=== PATIENT | male | born 1960 | race Caucasian/White ===

== ENCOUNTER → 2017-03-21 | Outpatient (CLI) | payer BC, OTHER ==
[~2017-03-21] VITALS: Ht 182.9 cm; Wt 113.6 kg
[~2017-03-21] MED LIST: ALBUTEROL INHAL17 GM IH; ALPRAZOLAM 0.50.5 M1 PO; ALPRAZOLAM 0.50.5 MG PO; COUGH SYRUP118 ML; HYDROCODON-ACE1 EAC5 PO; HYDROCODON-ACE1 EAC7 PO; HYDROCODONE-APA1 TA1 PO; MS CONTIN15 MG PO; NEXIUM PO; NICOTINE TRANSD21 M1; NORCO 5-325 TA1 EACH PO; PREDNISONE 5 MG5 MG PO; PROMETHAZINE/C118 ML PO; SINGULAIR 10 MG10 M1 PO; VOLTAREN GEL 1100 G1 TOP; VOLTAREN GEL 1100 GM TOP; XANAX 0.5 MG0.5 M1 PO
--- NOTE | ~2017-03-21 | HPC ---
[facility] [place] [address] PAIN MANAGEMENT CONSULTATION Name: CHRISTIANOKIRSTIN LEE Room #: REG [facility] Arianne#: [id number] Admission: 03/21/17 Attend Phys: Nawaf Hall DO Discharge: Date of : 64 Report #: [id number] THIS REPORT FOR: //name// CC: Som Hall The patient is a very pleasant 56-year-old gentleman, being treated for bilateral hip DJD, right greater than left pain, chronic pain syndrome requiring complex medication management, history of gastroesophageal reflux, all requiring complex medication management. Last seen in the pain clinic 12/13/2016. Continued the patient on his baseline medication including MS Contin 15 mg b.i.d., hydrocodone 7.5/325 up to 4 a day. The patient has significant nicotine habituation, he had weaned down from 2-3 packs a day down to 1 pack a day. We had congratulated him on his effort and he had planned on stopping smoking before a scheduled [place] vacation with his family. Continued Singulair 10 mg at bedtime to help with nocturnal pertussis and this was helpful. He had prior been using codeine episodically for this. He returns to pain clinic today, he had managed to nearly quit smoking, unfortunately developed a migraine headache on his cruise and did start smoking and he is back to about a pack a day. He states chronic pain in the right hip (status post total hip arthroplasty) remains problematic, little pain in the left hip as well, gait is moderately antalgic. He notes pain is 5 on a 0-10 visual analog scale with the current medication, exacerbated with standing and walking. PHYSICAL EXAMINATION: Shows 56-year-old gentleman, BMI is 34 kg/m2, again back to smoking about 1 pack a day. Vital signs are generally stable, blood pressure 140/77, pulse 68, and respirations 16. Rises from chair using armrest, nominally antalgic gait, again favoring that right hip. He has seen multiple orthopedic surgeons and no one wants to revise his hip. Generally, he is doing adequately with current medications. Last urine drug screen on 07/26/2016, was positive for prescribed medication, morphine and hydrocodone as well as codeine. He has stopped using the codeine product. We reviewed the fact that opiate medications are being used to provide analgesia adequate to support activities of daily living, not attempting to achieve a specific pain score on the 0-10 Visual Analog Scale. The current opiate medications are providing sufficient analgesia to allow the patient to participate in activities of daily living. The patient is not exhibiting any aberrant behavior suggestive of drug diversion. The patient is not having any adverse reactions to medications. The patient is not suffering from daytime somnolence or mental acuity changes. The patient is managing opiate-induced constipation with appropriate uldr-cpr-sktiant agents and dietary considerations. The patient was counseled on concern for caution with operating a motor vehicle while using opiate medications. [address] [address] PAIN MANAGEMENT CONSULTATION Name: KIRSTIN ALVARADO Room #: REG Shana Acuña#: [id number] Admission: 03/21/17 Attend Phys: Nawaf Hall DO Discharge: Date of : 64 Report #: [id number] A physical exam was performed and the patient's functional status was evaluated. All patients with back pain were advised against the bed rest greater than 4 days and were advised to return to normal activities. Pain score assessment was noted and the treatment plan was reviewed with the patient. All current medications, both prescribed and OTC were reviewed and reconciled on the electronic medical record. Tobacco screening was accomplished and smoking cessation was advised when indicated. BMI was noted and diet/exercise modification was recommended for all patients following outside normal parameters. I reviewed with the patient today their responsibilities to safeguard prescription medications, reviewed their responsibility to utilize medications only as prescribed by the physician. They are to seek and receive pain medications only from 1 physician group ( [facility]). They are to use 1 pharmacy and keep the clinic informed if they change pharmacies. Their responsibilities include making followup visits in a timely fashion and to avoid abrupt discontinuation of medication usage. Their responsibilities further include bringing their medications (bottles from the pharmacy with residual pills) to the visit for possible confirmation of pill counts and the patient understands it is their responsibility to submit to random drug screens to ensure both that the medications prescribed are present, and that no other controlled substances are present. All prescriptions provided today were generated electronically. 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 RECOMMENDATION: Continue baseline narcotics unchanged, MS Contin 15 mg b.i.d., hydrocodone 7.5/325 up to 4 a day. I did mandate the patient quit smoking altogether when I see him back in 3 months. I talked about simply trying to quit smoking for 24-hour periods, i.e., no smoking, Saturday, enable smoking Saturday, no smoking Saturday, enable smoking Saturday, etc. Once he is mastered this for 1 month, I will have him go to 2 days at a time. The patient was discharged in good and stable condition, current medications unchanged, strong consideration and encouragement regarding the smoking cessation. <ELECTRONICALLY SIGNED> By: Nawaf Hall DO 03/25/17 0856 [id number] Nawaf Hall DO /nt
[2017-03-21 13:53] VITALS: BP 140/77
== END | disposition home or self-care (01) ==
LOC: PAIN 06:46
DX: M16.0 Bilateral primary osteoarthritis of hip (principal); G89.4 Chronic pain syndrome; K21.9 Gastro-esophageal reflux disease without esophagitis; G43.909 Migraine, unspecified, not intractable, without status migrainosus; Z98.890 Other specified postprocedural states; F17.200 Nicotine dependence, unspecified, uncomplicated

== ENCOUNTER → 2017-07-05 | Outpatient (CLI) | payer BC, OTHER ==
[~2017-07-05] VITALS: Ht 182.9 cm; Wt 113.6 kg
[~2017-07-05] MED LIST changes: +NORCO 7.5-3251 EACH PO
--- NOTE | ~2017-07-05 | HPC ---
[facility] [place] [address] [place] [address] PAIN MANAGEMENT CONSULTATION Name: KIRSTIN ALVARADO Room #: REG [facility] Blanquita.#: [id number] Admission: 07/05/17 Attend Phys: Nawaf Hall DO Discharge: Date of : 64 Report #: [id number] THIS REPORT FOR: //name// CC: Som Hall HISTORY OF PRESENT ILLNESS: The patient is a very pleasant 56-year-old gentleman long treated for DJD bilateral hips right greater than left, chronic pain syndrome requiring high risk complex medication management. Last seen in the pain clinic on 03/21/2017; continued on MS Contin 15 mg b.i.d., hydrocodone 7.5/325 four a day. The patient was counseled regarding smoking cessation. He had been up to 2-3 packs of cigarettes a day for years, down to 1 pack a day. Returns to pain clinic today, I am pleased to note that he has been a nonsmoker now for 2 weeks! I congratulated the patient on his smoking cessation. Last urine drug screen was on 07/27/2016, postive for appropriate meds. The patient notes medications generally provide sufficient analgesia to participate in activities of daily living. Rates his subjective pain score 6 on a VAS. Again, pain is primarily right hip and thigh with some left hip pain; chronic, sharp, aching; rates it as 6 on a VAS; exacerbated with standing and walking. PHYSICAL EXAMINATION: Relatively unchanged. Otherwise a 56-year-old gentleman, BMI is 34 kilograms per meter squared. Vital signs stable as noted in the EMR. Rises from chair using armrest. Modestly antalgic gait, diffuse low back tenderness, tenderness over the right hip. Gait is tandem. Lower extremity strength is preserved. We reviewed the fact that opiate medications are being used to provide analgesia adequate to support activities of daily living, not attempting to achieve a specific pain score on the 0-10 Visual Analog Scale. The current opiate medications are providing sufficient analgesia to allow the patient to participate in activities of daily living. The patient is not exhibiting any aberrant behavior suggestive of drug diversion. The patient is not having any adverse reactions to medications. The patient is not suffering from daytime somnolence or mental acuity changes. The patient is managing opiate-induced constipation with appropriate yasg-oht-qezkihl agents and dietary considerations. The patient was counseled on concern for caution with operating a motor vehicle while using opiate medications. A physical exam was performed and the patient's functional status was evaluated. All patients with back pain were advised against the bed rest greater than 4 days and were advised to return to normal activities. Pain score assessment was noted and the treatment plan was reviewed with the patient. All current medications, both prescribed and OTC were reviewed and reconciled on the electronic medical record. Tobacco screening was accomplished and smoking cessation was advised when indicated. BMI was noted and diet/[place] [address] PAIN MANAGEMENT CONSULTATION Name: CHRISTIANOKIRSTIN NIKIA Room #: REG [facility] Arianne#: [id number] Admission: 07/05/17 Attend Phys: Nawaf Hall DO Discharge: Date of : 64 Report #: [id number] modification was recommended for all patients following outside normal parameters. I reviewed with the patient today their responsibilities to safeguard prescription medications, reviewed their responsibility to utilize medications only as prescribed by the physician. They are to seek and receive pain medications only from 1 physician group ( [facility]). They are to use 1 pharmacy and keep the clinic informed if they change pharmacies. Their responsibilities include making followup visits in a timely fashion and to avoid abrupt discontinuation of medication usage. Their responsibilities further include bringing their medications (bottles from the pharmacy with residual pills) to the visit for possible confirmation of pill counts and the patient understands it is their responsibility to submit to random drug screens to ensure both that the medications prescribed are present, and that no other controlled substances are present. All prescriptions provided today were generated electronically. ASSESSMENT: Symptomatic degenerative joint disease affecting bilateral hips, right greater than left, chronic pain syndrome requiring high risk complex medication management, stable on baseline medication. Last urine drug screen on 07/27/2016, positive for prescribed medications. RECOMMENDATION: Continue MS Contin 15 mg b.i.d., hydrocodone 7.5/325 up to 4 a day. The patient was congratulated on smoking cessation and encouraged regarding continuing this. <ELECTRONICALLY SIGNED> By: Nawaf Hall DO 07/08/17 1014 [id number] Nawaf Hall DO /nt
[2017-07-05 13:35] VITALS: BP 146/77
== END | disposition home or self-care (01) ==
LOC: PAIN 07:21
DX: M16.0 Bilateral primary osteoarthritis of hip (principal); G89.4 Chronic pain syndrome; Z79.899 Other long term (current) drug therapy; Z87.891 Personal history of nicotine dependence

== ENCOUNTER → 2017-11-21 | Outpatient (CLI) | payer BC, OTHER ==
[~2017-11-21] VITALS: Ht 182.9 cm; Wt 116.1 kg
[~2017-11-21] MED LIST changes: +HYDROCODONE-AP1 EA11 PO; +PROMETHAZI6.25 MG/5 PO
--- NOTE | ~2017-11-21 | HPC ---
[facility] [place] [address] [place] [address] PAIN MANAGEMENT CONSULTATION Name: KIRSTIN ALVARADO Room #: REG [facility] Arianne#: [id number] Admission: 11/21/17 Attend Phys: Nawaf Hall DO Discharge: Date of : 64 Report #: [id number] THIS REPORT FOR: //name// CC: Som Hall The patient is a pleasant 57-year-old gentleman, typically treated for DJD affecting bilateral hips, osteoarthritis, chronic pain syndrome, requiring high risk complex medication management. Last seen in the pain clinic 07/05/2017. The patient was continued on baseline medication including MS Contin 15 mg b.i.d., hydrocodone 7.5/325 four a day. To the patient's credit, at last visit he had quit smoking. He tells me today that he has continued to be a nonsmoker. He does use occasional nicotine gum. Nonetheless, cutting down from 2 packs a day for greater than 25 years is a substantial step forward in his general health. He notes current pain is a 6 on a VAS, primarily right hip and thigh, status post right total hip replacement. He has actually had multiple orthopedic surgeons opine about need for surgical revision versus a simple watchful waiting. Ultimately, he has chosen the latter. 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 He traded his boat in for a large boat, he tells me he has about 17 rods and rales. He states he is "not a very good fisherman," but gets great vivi out of spending time on the water. He is obviously participating in activities of daily living including a realtime reporter work and recreational activity. PHYSICAL EXAMINATION: Shows a 57-year-old gentleman, BMI is 34.7 kg/m2. Vital signs are stable as noted on the EMR. Subjective pain score is 6 on a VAS. He has not fallen in the last 3 months, os he does use a cane occasionally when hip is a little more painful. Medicine list was reconciled. We reviewed his opiate consent to treat contract, last signed on 04/23/2016. Risk assessment tool scores the patient low risk. His pain impact score is 39/70. He does have a moderately antalgic gait, though gait is tandem. He does not appear to have any balance issues. We reviewed the fact that opiate medications are being used to provide analgesia adequate to support activities of daily living, not attempting to achieve a specific pain score on the 0-10 Visual Analog Scale. The current opiate medications are providing sufficient analgesia to allow the patient to participate in activities of daily living. The patient is not exhibiting any [address] [address] PAIN MANAGEMENT CONSULTATION Name: CHRISTIANOKIRSTIN NIKIA Room #: REG [facility] Acuña#: [id number] Admission: 11/21/17 Attend Phys: Nawaf Hall DO Discharge: Date of : 64 Report #: [id number] aberrant behavior suggestive of drug diversion. The patient is not having any adverse reactions to medications. The patient is not suffering from daytime somnolence or mental acuity changes. The patient is managing opiate-induced constipation with appropriate scag-saf-ylalanf agents and dietary considerations. The patient was counseled on concern for caution with operating a motor vehicle while using opiate medications. A physical exam was performed and the patient's functional status was evaluated. All patients with back pain were advised against the bed rest greater than 4 days and were advised to return to normal activities. Pain score assessment was noted and the treatment plan was reviewed with the patient. All current medications, both prescribed and OTC were reviewed and reconciled on the electronic medical record. Tobacco screening was accomplished and smoking cessation was advised when indicated. BMI was noted and diet/exercise modification was recommended for all patients following outside normal parameters. I reviewed with the patient today their responsibilities to safeguard prescription medications, reviewed their responsibility to utilize medications only as prescribed by the physician. They are to seek and receive pain medications only from 1 physician group ( [facility]). They are to use 1 pharmacy and keep the clinic informed if they change pharmacies. Their responsibilities include making followup visits in a timely fashion and to avoid abrupt discontinuation of medication usage. Their responsibilities further include bringing their medications (bottles from the pharmacy with residual pills) to the visit for possible confirmation of pill counts and the patient understands it is their responsibility to submit to random drug screens to ensure both that the medications prescribed are present, and that no other controlled substances are present. All prescriptions provided today were generated electronically. ASSESSMENT: Osteoarthritis, degenerative joint disease affecting bilateral knees, right greater than left. Stable on baseline medication including MS Contin 15 mg b.i.d., hydrocodone 7.5/325 one tablet up to 4 times a day. I have taken the liberty of writing for 2 months of current medication, follow up at that time, earlier if needed. We elected to get a buccal swab today. No aberrant behavior suggestive for drug diversion, simply complying with our opiate consent to treat contract. Discharged in good and stable condition, follow up in 2 months for reevaluation. <ELECTRONICALLY SIGNED> By: Nawaf Hall DO 11/22/17 0845 [id number] Nawaf Hall DO /nt
[2017-11-21 13:47] VITALS: BP 131/72
== END ==
LOC: PAIN 07:16
DX: M16.0 Bilateral primary osteoarthritis of hip (principal); G89.29 Other chronic pain; Z79.899 Other long term (current) drug therapy

== ENCOUNTER → 2018-03-07 | Outpatient (CLI) | payer BC, OTHER ==
[~2018-03-07] VITALS: Ht 182.9 cm; Wt 116.3 kg
[~2018-03-07] MED LIST changes: -HYDROCODONE-AP1 EA11 PO; -PROMETHAZI6.25 MG/5 PO
--- NOTE | ~2018-03-07 | HPC ---
[facility] [place] [address] PAIN MANAGEMENT CONSULTATION Name: CHRISTIANOKIRSTIN NIKIA Room #: REG [facility] Arianne#: [id number] Admission: 03/07/18 Attend Phys: Nawaf Hall DO Discharge: Date of : 64 Report #: [id number] THIS REPORT FOR: //name// CC: Som Hall DATE OF SERVICE: 03/07/2018 The patient is a very pleasant 57-year-old gentleman long treated for chronic right hip pain requiring complex medication management. The patient had a right total hip arthroplasty in 04/2009, has had ongoing pain since. I initially took over his care in 02/2010. He has been on chronic opiate analgesics since with some improvement of symptoms. He initially had avascular necrosis of the right hip. Subsequent to the surgery, ongoing pain that he described as sharp and aching, exacerbated with standing and walking and pretty much any weightbearing on that side. He rates the pain a 5-6 on a VAS with current medication. The patient had been a 2-pack a day smoker and at our insistence, he quit smoking. He has now been a nonsmoker for greater than 6 months. He is followed up with orthopedic surgeons for surgical opinion regarding revision of the total hip arthroplasty. 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 He has started [employer]. He spends a great deal of time at this avocation and is getting a good deal of vivi out of this. PHYSICAL EXAMINATION: Shows a 57-year-old gentleman, BMI is 34.8 kg/m2. Vital signs are stable as noted in the EMR. Rises from chair using the armrest, modestly antalgic gait favoring that right hip. Lower extremity strength is generally preserved. Lumbar flexion is modestly limited. Skin integument is intact. Functional assessment tool scores is 39/70. Risk assessment tool score is low risk at 1. Last random drug screen on 11/22/2017 was positive for prescribed medication including morphine and hydrocodone. We reviewed the fact that opiate medications are being used to provide analgesia adequate to support activities of daily living, not attempting to achieve a specific pain score on the 0-10 Visual Analog Scale. The current [address] [address] PAIN MANAGEMENT CONSULTATION Name: KIRSTIN ALVARADO NIKIA Room #: REG [facility] Blanquita.#: [id number] Admission: 03/07/18 Attend Phys: Nawaf Hall DO Discharge: Date of : 64 Report #: [id number] medications are providing sufficient analgesia to allow the patient to participate in activities of daily living. The patient is not exhibiting any aberrant behavior suggestive of drug diversion. The patient is not having any adverse reactions to medications. The patient is not suffering from daytime somnolence or mental acuity changes. The patient is managing opiate-induced constipation with appropriate icaq-ybd-tqxdfuw agents and dietary considerations. The patient was counseled on concern for caution with operating a motor vehicle while using opiate medications. A physical exam was performed and the patient's functional status was evaluated. All patients with back pain were advised against the bed rest greater than 4 days and were advised to return to normal activities. Pain score assessment was noted and the treatment plan was reviewed with the patient. All current medications, both prescribed and OTC were reviewed and reconciled on the electronic medical record. Tobacco screening was accomplished and smoking cessation was advised when indicated. BMI was noted and diet/exercise modification was recommended for all patients following outside normal parameters. I reviewed with the patient today their responsibilities to safeguard prescription medications, reviewed their responsibility to utilize medications only as prescribed by the physician. They are to seek and receive pain medications only from 1 physician group ( [facility]). They are to use 1 pharmacy and keep the clinic informed if they change pharmacies. Their responsibilities include making followup visits in a timely fashion and to avoid abrupt discontinuation of medication usage. Their responsibilities further include bringing their medications (bottles from the pharmacy with residual pills) to the visit for possible confirmation of pill counts and the patient understands it is their responsibility to submit to random drug screens to ensure both that the medications prescribed are present, and that no other controlled substances are present. All prescriptions provided today were generated electronically. ASSESSMENT: Chronic right hip pain, chronic pain syndrome requiring complex medication management status post total hip arthroplasty for avascular necrosis of the right femoral head. RECOMMENDATIONS: Continue the MS Contin 15 mg b.i.d., hydrocodone 7.5/325 one tablet up to 4 times a day. I have taken the liberty of writing for 3 months of current medication. We did discuss today that patient is in the moderate risk stratification (50-90 mg morphine equivalents daily) taking approximately 60 milligram equivalents of morphine daily. Suggest he try and wean hydrocodone down to 2-3 a day as able. Follow up in 3 months for reevaluation. [facility] [address] [place] [address] PAIN MANAGEMENT CONSULTATION Name: KIRSTIN ALVARADO Room #: REG CLShana Acuña#: [id number] Admission: 03/07/18 Attend Phys: Nawaf Hall DO Discharge: Date of : 64 Report #: [id number] I did tell the patient today that I will be leaving the practice area. He will need to follow up with one of my partners at [facility]. He has been very stable on his medications, diligent about following my recommendations including smoking cessation. His random drug screens have been appropriate and he has not called for early release of his scheduled II medications. Discharged in good and stable condition. <ELECTRONICALLY SIGNED> By: Nawaf Hall DO 03/10/18 0709 1548 [id number] Nawaf Hall DO /nt
[2018-03-07 13:42] VITALS: BP 153/70
== END ==
LOC: PAIN 03-06 11:33
DX: M25.551 Pain in right hip (principal); G89.29 Other chronic pain; Z79.899 Other long term (current) drug therapy

== ENCOUNTER → 2018-06-27 | Outpatient (CLI) | payer BC, OTHER ==
[~2018-06-27] VITALS: Ht 182.9 cm; Wt 118.6 kg
[~2018-06-27] MED LIST changes: +HYDROCODONE-AP1 EA11 PO; +PROMETHAZI6.25 MG/5 PO
[2018-06-27 13:22] VITALS: BP 156/63
== END ==
LOC: PAIN 07:06
DX: M17.0 Bilateral primary osteoarthritis of knee (principal); G89.29 Other chronic pain; M19.011 Primary osteoarthritis, right shoulder; M19.012 Primary osteoarthritis, left shoulder; Z79.899 Other long term (current) drug therapy; Z96.641 Presence of right artificial hip joint

== ENCOUNTER → 2018-10-10 | Outpatient (CLI) | payer BC, OTHER ==
[~2018-10-10] VITALS: Ht 182.9 cm; Wt 121.9 kg
[2018-10-10 11:15] VITALS: BP 145/71
--- NOTE | 2018-10-10 11:19 | NUR ---
Pain Clinic Assessment: 1. History of Osteoarthritis: Left Lower Extremity Left Upper Extremity Right Lower Extremity Right Upper Extremity History of Rheumatoid Arthritis: Not Applicable 2. Height: 6 ft. 0 in. 182.9 cm. Weight: 268.8 lb. oz. 121.927 kg. Patient's BMI: 36.4 3. Vital Signs: BP: 145/71 Pulse: 60 Resp: 18 Temp: 02 Sat: 96 ECG Mon: 4. Pain Intensity: 6 5. Fall Risk: Dizziness: N Needs help standing or walking: N Fallen in the last 3 months: N Fall risk comments: 6. Patient on Blood Thinner: None 7. History of Hypertension: N 8. Opioid Therapy greater than 6 weeks: Y Opiate Contract Signed: 04/23/16 9. Risk Assessment Tool Provided: 1/LOW 10. Functional Assessment Tool: 11. Recreational Drug Use: Never Drug Type: Tobacco Use: Former Smoker Tobacco Type: Amount or Packs/day: How Many Years: Alcohol Use: Past use Frequency: Quant:
--- NOTE | 2018-10-13 07:46 | HPC ---
[facility] [place] [address] PAIN MANAGEMENT CONSULTATION Name: KIRSTIN ALVARADO Room #: REG [facility] Arianne#: [id number] Admission: 10/10/18 Attend Phys: Rosaline Warner Discharge: Date of : 64 Report #: [id number] THIS REPORT FOR: //name// CC: Rosaline Miguel DATE OF SERVICE: 10/10/2018 CHIEF COMPLAINT: Chronic right hip pain and low back pain. HISTORY OF PRESENT ILLNESS: This is a 58-year-old gentleman who is a longstanding pain clinic patient for his right hip pain and ongoing back pain. He is on chronic opioid medicines since 2008. He is here for refill of his medications today. He tells me that his pain score is 6/10, which is an average. Some days, it is worse and some days he is able to take less hydrocodone as his breakthrough pain medicine and sometimes he does have to take the full form that he is allotted. He tells me when he does not sleep well, he has increased pain as of today. Pain is worse with standing, walking and medication and lying down does help. He does tell me that he denies any constipation and does have some daytime sleepiness when he is not sleeping well at night. He tells me that he has been slightly worried about the opioid crisis that he keeps hearing about in the news. The patient would like a refill of his medication today and he is on time for his refills. ALLERGIES: NONSTEROIDAL ANTI-INFLAMMATORIES. MEDICATIONS: Hydrocodone 7.5/325 up to 4 times a day, morphine sulfate 15 mg twice a day, Voltaren gel as needed, Xanax 0.5 mg p.r.n., albuterol inhaler as needed. PQRS: 1. He has a history of osteoarthritis in his upper and lower extremities. Denies rheumatoid arthritis. 2. Height is 6 feet, weight is 268, BMI is 36.4. 3. Vital signs: Blood pressure 145/71, pulse of 60, respirations 18, oxygen sat is 96. 4. Pain score is 6/10. 5. Fall risk. Denies dizziness. Does not need help walking or standing. Has not fallen in the last 3 months. 6. The patient denies blood thinner and he does not take any antihypertensive medicines. 7. Opioid therapy is greater than 6 weeks; therefore, no opiate signed contract is on the chart. 8. His risk assessment tool is low. His functional assessment is 39/70. 9. Recreational drug use, the patient denies. He is a former smoker, though does admit to occasionally smoking a cigarette now and then. [place] [address] PAIN MANAGEMENT CONSULTATION Name: KIRSTIN ALVARADO Room #: REG [facility] Acuña#: [id number] Admission: 10/10/18 Attend Phys: Rosaline Warner Discharge: Date of : 64 Report #: [id number] alcohol. We did check the prescription monitoring system on this patient, filling appropriately from our doctors and there is a recent drug screen on the chart that was appropriate. PHYSICAL EXAMINATION: GENERAL: This is a well-nourished, well-developed white male. He appears his stated age. He is alert and orientated x 3. His affect is appropriate and speech is fluent. HEENT: Normocephalic, atraumatic. Extraocular eye muscles are intact. Sclerae is nonicteric. Mucous membranes are moist. NECK: Without adenopathy or JVD. He has good range of motion. MUSCULOSKELETAL: Does complain of right hip and right thigh, groin pain ongoing. He says it is worse with weightbearing and does walk with an antalgic gait. Lower extremity strength judged to be 5/5 in all major muscle groups. IMPRESSION: 1. Right hip pain, status post hip replacement due to avascular necrosis. 2. Chronic low back pain. 3. Sleep apnea. 4. Asthma. 5. Joint disease, arthritis. We reviewed the fact that opiate medications are being used to provide analgesia adequate to support activities of daily living, not attempting to achieve a specific pain score on the 0-10 Visual Analog Scale. The current opiate medications are providing sufficient analgesia to allow the patient to participate in activities of daily living. The patient is not exhibiting any aberrant behavior suggestive of drug diversion. The patient is not having any adverse reactions to medications. The patient is not suffering from daytime somnolence or mental acuity changes. The patient is managing opiate-induced constipation with appropriate rykq-ysy-gxtwgpy agents and dietary considerations. The patient was counseled on concern for caution with operating a motor vehicle while using opiate medications. A physical exam was performed and the patient's functional status was evaluated. All patients with back pain were advised against the bed rest greater than 4 days and were advised to return to normal activities. Pain score assessment was noted and the treatment plan was reviewed with the patient. All current medications, both prescribed and OTC were reviewed and reconciled on the electronic medical record. Tobacco screening was accomplished and smoking cessation was advised when indicated. BMI was noted and diet/exercise modification was recommended for all patients following outside normal parameters. I reviewed with the patient today their responsibilities to safeguard prescription medications, reviewed their responsibility to utilize medications [address] [address] PAIN MANAGEMENT CONSULTATION Name: KIRSTIN ALVARADO Room #: REG [facility]#: [id number] Admission: 10/10/18 Attend Phys: Rosaline Warner Discharge: Date of : 64 Report #: [id number] only as prescribed by the physician. They are to seek and receive pain medications only from 1 physician group ( [facility]). They are to use 1 pharmacy and keep the clinic informed if they change pharmacies. Their responsibilities include making followup visits in a timely fashion and to avoid abrupt discontinuation of medication usage. Their responsibilities further include bringing their medications (bottles from the pharmacy with residual pills) to the visit for possible confirmation of pill counts and the patient understands it is their responsibility to submit to random drug screens to ensure both that the medications prescribed are present, and that no other controlled substances are present. All prescriptions provided today were generated electronically. PLAN: 1. We discussed treatment options with the patient today. He has been worried about the opioid epidemic that he is hearing about in the news. I discussed with him the CDC guidelines and what this office does to monitor the patient's prescription medicines. I informed him that he is on 60 MME morphine mEq, which is below the CDC guidelines. He is filling his meds appropriately and he is taking them for his chronic pain issues. The patient felt reassured that he is not one of those patients that he is hearing about in the news. I explained to him that he takes his medicine for his chronic hip and back pain and is monitored very closely. The patient agreed to continue on his current MS Contin 15 mg b.i.d. Scripts were given for today for an 8-week release as well as hydrocodone 7.5/325, #120 for today for an 8-week release. 2. We discussed that the patient has increased his weight since stopping smoking. I encouraged the patient to: i). Watch his diet. ii). Possibly try to find a gym that has water therapy that would help not put stress on his joints in his lower extremities and his hip, which can cause with some increased pain. The patient tells me he does use a Bowflex machine some, but that has not been as helpful in losing weight as he had hoped. He tells me he will try and eat less and try to find time to work out. 3. The patient will be seen in 3-month time period for refill of his medication and sooner if need be. The patient care given today in collaboration with Dr. Ishaan Rao. <ELECTRONICALLY SIGNED> By: Rosaline Warner 10/13/18 [id number] Rosaline Warner /jenna
== END ==
LOC: PAIN 07:22
DX: M54.5 Low back pain (principal); G89.29 Other chronic pain; M25.551 Pain in right hip; G47.30 Sleep apnea, unspecified; J45.909 Unspecified asthma, uncomplicated; M19.90 Unspecified osteoarthritis, unspecified site

== ENCOUNTER → 2019-01-14 | Outpatient (CLI) | payer BC, OTHER ==
[~2019-01-14] VITALS: Ht 182.9 cm; Wt 121.8 kg
[2019-01-14 12:44] VITALS: BP 137/69
--- NOTE | 2019-01-14 13:02 | NUR ---
Pain Clinic Assessment: 1. History of Osteoarthritis: B/L SHOULDERS B/L KNEES History of Rheumatoid Arthritis: Not Applicable 2. Height: 6 ft. 0 in. 182.9 cm. Weight: 268.6 lb. oz. 121.836 kg. Patient's BMI: 36.4 3. Vital Signs: BP: 137/69 Pulse: 69 Resp: 14 Temp: 02 Sat: 97 ECG Mon: 4. Pain Intensity: 6 5. Fall Risk: Dizziness: N Needs help standing or walking: N Fallen in the last 3 months: N Fall risk comments: 6. Patient on Blood Thinner: None 7. History of Hypertension: N 8. Opioid Therapy greater than 6 weeks: Y Opiate Contract Signed: 04/23/16 9. Risk Assessment Tool Provided: 1/BERTRAM 10. Functional Assessment Tool: 11. Recreational Drug Use: Never Drug Type: Tobacco Use: Former Smoker Tobacco Type: Amount or Packs/day: How Many Years: Alcohol Use: Past use Frequency: Quant:
--- NOTE | 2019-01-15 13:40 | HPC ---
[facility] [place] [address] PAIN MANAGEMENT CONSULTATION Name: KIRSTIN ALVARADO Room #: REG [facility] Arianne#: [id number] Admission: 01/14/19 ������������������ Attend Phys: Rosaline Warner Discharge: ������������������ Date of : 64 Report #: [id number] THIS REPORT FOR: //name// CC: Rosaline Miguel DATE OF SERVICE: 01/14/2019 CHIEF COMPLAINT: Chronic right hip pain and low back pain. HISTORY OF PRESENT ILLNESS: This is a very pleasant 58-year-old gentleman who returns to the pain clinic today for his ongoing right hip pain and lower back pain. He tells me that his medications are very helpful in controlling his pain. He tells me that he has gained some weight since he quit smoking, which has affected his lower back pain some, but he said he feels so much better since he has quit smoking. He still continues to use Nicorette gum and sucks lozenges quite frequently. He says he knows that he needs to decrease his weight, but he does not feel like he has the cravings that he used to for food since he quit smoking, so he is hopeful that he is able to reduce his weight that will help with his back pain. His weight has remained steady the past few months. He tells me that his pain score today is a 6/10. Most of this pain is from walking and standing. His medication and resting and sitting down are very helpful in relieving his pain. He tells me he has no problems with daytime sleepiness or constipation. ALLERGIES: NSAIDS. MEDICATIONS: Morphine sulfate 15 mg twice a day, hydrocodone 7.5/325 up to 4 times a day, Voltaren gel as needed, Xanax 0.25 p.r.n. and albuterol inhaler. PQRS: 1. He has a history of osteoarthritis in his upper and lower extremities. He denies any rheumatoid arthritis. 2. Height is 6 feet, weight is 268, BMI is 36. 3. Vital signs: Blood pressure 137/69, pulse is 69, respirations 14, oxygen sat is 97%. 4. Pain score is 6/10. 5. Denies dizziness, does not need help walking or standing. Has not fallen in the last 3 months. 6. The patient is not on any blood thinners or medicine for hypertension. 7. Opiate therapy is greater than 6 weeks; therefore, an opiate signed contract is on the chart. 8. Risk assessment tool is low. His functional assessment is 39/70. 9. Recreational drug use, he denies. He is a former smoker and he does not drink alcohol. [address] [address] PAIN MANAGEMENT CONSULTATION Name: CHRISTIANOKIRSTIN LEE Room #: REG [facility] Arianne#: [id number] Admission: 01/14/19 ������������������ Attend Phys: Rosaline Warner Discharge: ������������������ Date of : 64 Report #: [id number] We did check the prescription monitoring system. The patient is filling appropriately with his medications in a timely fashion and there is a recent drug screen on the chart that is just a year old. We will check a random drug screen on his next visit. PHYSICAL EXAMINATION: GENERAL: This is a well-developed, well-nourished, well-hydrated 58-year-old gentleman who appears his stated age. He is alert and orientated and his affect is appropriate. HEENT: Normocephalic, atraumatic. Extraocular eye muscles are intact. Mucous membranes are moist. NECK: Without adenopathy or JVD. EXTREMITIES: He has good range of motion. Does complain of some tenderness in his trapezius muscles. MUSCULOSKELETAL: Lower extremity strength judged to be 5/5 in all major muscle groups. He does walk with antalgic gait. Complains of some right hip and thigh pain today. IMPRESSION: 1. Right hip pain, status post replacement due to avascular necrosis. 2. Chronic low back pain. 3. Sleep apnea. 4. Asthma. 5. Osteoarthritis joint disease. We reviewed the fact that opiate medications are being used to provide analgesia adequate to support activities of daily living, not attempting to achieve a specific pain score on the 0-10 Visual Analog Scale. The current opiate medications are providing sufficient analgesia to allow the patient to participate in activities of daily living. The patient is not exhibiting any aberrant behavior suggestive of drug diversion. The patient is not having any adverse reactions to medications. The patient is not suffering from daytime somnolence or mental acuity changes. The patient is managing opiate-induced constipation with appropriate dnqj-bjf-uhftwaa agents and dietary considerations. The patient was counseled on concern for caution with operating a motor vehicle while using opiate medications. A physical exam was performed and the patient's functional status was evaluated. All patients with back pain were advised against the bed rest greater than 4 days and were advised to return to normal activities. Pain score assessment was noted and the treatment plan was reviewed with the patient. All current medications, both prescribed and OTC were reviewed and reconciled on the electronic medical record. Tobacco screening was accomplished and smoking cessation was advised when indicated. BMI was noted and diet/exercise modification was recommended for all patients following outside normal parameters. [address] [address] PAIN MANAGEMENT CONSULTATION Name: KIRSTIN ALVARADO Room #: REG [facility] Kevin#: [id number] Admission: 01/14/19 ������������������ Attend Phys: Rosaline RODNEY Nuñezkojo Discharge: ������������������ Date of : 64 Report #: [id number] I reviewed with the patient today their responsibilities to safeguard prescription medications, reviewed their responsibility to utilize medications only as prescribed by the physician. They are to seek and receive pain medications only from 1 physician group ( [facility]). They are to use 1 pharmacy and keep the clinic informed if they change pharmacies. Their responsibilities include making followup visits in a timely fashion and to avoid abrupt discontinuation of medication usage. Their responsibilities further include bringing their medications (bottles from the pharmacy with residual pills) to the visit for possible confirmation of pill counts and the patient understands it is their responsibility to submit to random drug screens to ensure both that the medications prescribed are present, and that no other controlled substances are present. All prescriptions provided today were generated electronically. PLAN: 1. We discussed treatment options with the patient today. The patient feels like his medications are very helpful. He continues to below the CDC guidelines of 90 morphine mme or lower placing him at 60 MMEs with his current medications, so therefore we will keep him at his current dose of MS Contin 15 mg b.i.d. and hydrocodone 7.5/325, #120. Scripts given for these medications for today, 4-week and 8-week release. 2. We again talked about his smoking cessation and his increase of his weight. He feels like it has been stabilized, which according to his chart, he weighs the same today as he did in October. The patient tells me that he will try and be a little more active now this summer he is here. He tells me that he does not have the cravings for food that he did when he was trying to quit smoking. 3. The patient will follow up with Dr. Ishaan Rao in [address] Rao did collaborate with care today. ��������������������������������������������� <ELECTRONICALLY SIGNED> ���������������������������������������� By: Rosaline Warner ��������������������������������������������� 01/15/19 [id number] Rosaline Warner /nt
== END ==
LOC: PAIN 07:14
DX: M25.551 Pain in right hip (principal); M54.5 Low back pain; G89.29 Other chronic pain; G47.30 Sleep apnea, unspecified; J45.909 Unspecified asthma, uncomplicated; Z88.5 Allergy status to narcotic agent; Z79.899 Other long term (current) drug therapy; M19.90 Unspecified osteoarthritis, unspecified site

== ENCOUNTER → 2019-04-15 | Outpatient (CLI) | payer BC, OTHER ==
[~2019-04-15] VITALS: Ht 182.9 cm; Wt 120.1 kg
[2019-04-15 13:59] VITALS: BP 142/71
--- NOTE | 2019-04-15 14:41 | NUR ---
Pain Clinic Assessment: 1. History of Osteoarthritis: B/L SHOULDERS B/L KNEES History of Rheumatoid Arthritis: Not Applicable 2. Height: 6 ft. 0 in. 182.9 cm. Weight: 264.8 lb. oz. 120.113 kg. Patient's BMI: 35.9 3. Vital Signs: BP: 142/71 Pulse: 64 Resp: 16 Temp: 02 Sat: 98 ECG Mon: 4. Pain Intensity: 5-6 5. Fall Risk: Dizziness: N Needs help standing or walking: N Fallen in the last 3 months: N Fall risk comments: 6. Patient on Blood Thinner: None 7. History of Hypertension: N 8. Opioid Therapy greater than 6 weeks: Y Opiate Contract Signed: 04/23/16 9. Risk Assessment Tool Provided: 0/LOW 10. Functional Assessment Tool: 11. Recreational Drug Use: Never Drug Type: Tobacco Use: Current Every Day Smoker Tobacco Type: Cigarettes Amount or Packs/day: 1/2 pack How Many Years: Alcohol Use: Past use Frequency: Quant:
--- NOTE | 2019-04-16 10:25 | HPC ---
[facility] [place] [address] PAIN MANAGEMENT CONSULTATION Name: KIRSTIN ALVARADO Room #: REG [facility] Arianne#: [id number] Admission: 04/15/19 ������������������ Attend Phys: Rosaline Warner Discharge: ������������������ Date of : 64 Report #: [id number] THIS REPORT FOR: //name// CC: Rosaline Miguel DATE OF SERVICE: 04/15/2019 CHIEF COMPLAINT: Right hip pain and low back pain. HISTORY OF PRESENT ILLNESS: This is a very pleasant 58-year-old gentleman who returns to the pain clinic today for his ongoing right hip pain and lower back pain. He tells me that he does not feel that his pain medication is helpful as it was in the past. He believes that may be to the weight that he has gained since he has quit smoking. We did review his chart and found that he has gained about 24 pounds in 3-1/2 years, not the 60 pounds that he thought he had gained. He tells me he did recently start smoking less than a pack a day a couple of weeks ago. He is hopeful that this will help him lose some weight. He would like a refill of his medications that he uses to help treat his right thigh and lower back pain. He rates his pain score today of 5-6. It is worse with standing and walking, which he has to do significantly at his work. His medications are helpful as well as sitting. He denies any problems with constipation or daytime sleepiness. ALLERGIES: NONSTEROIDAL ANTI-INFLAMMATORIES. CURRENT LIST OF MEDICATIONS: Morphine sulfate 15 mg b.i.d., hydrocodone 7.5/325 q.i.d., Voltaren gel as needed, Xanax 0.5 mg p.r.n., albuterol inhaler. PQRS: 1. He has history of osteoarthritis in his upper and lower extremities. Denies any rheumatoid arthritis. 2. Height is 6 feet, weight is 264. BMI is 35. 3. Vital signs: Blood pressure 142/71, pulse is 64, respirations 16, oxygen saturation is 98%. 4. Pain score is 5-6. 5. Fall risk. Denies dizziness. Does not need help with walking or standing. He has not fallen in the last 3 months. 6. The patient is not on any blood thinners. He does not take any medication for hypertension. 7. Opioid therapy is greater than 6 weeks; therefore, an opioid signed contract is on the chart. Risk assessment tool is low. Functional assessment is 41/70. 8. Recreational drug use, he denies. He is a current smoker about 1/2 a pack a day and does not drink alcohol. We did check the prescription monitoring system[place] [address] PAIN MANAGEMENT CONSULTATION Name: CHRISTIANOKIRSTIN LEE Room #: REG [facility] Arianne#: [id number] Admission: 04/15/19 ������������������ Attend Phys: Rosaline Warner Discharge: ������������������ Date of : 64 Report #: [id number] appropriately for his medications, on time for them today. We will check a drug screen on his next visit. He tells me he safeguards his medications. PHYSICAL EXAMINATION: GENERAL: This is a well-developed, well-nourished, well-hydrated 58-year-old who appears his stated age. He is alert and orientated. His affect is flat. HEENT: Normocephalic, atraumatic. Extraocular eye muscles are intact. Mucous membranes are moist. NECK: Without adenopathy or JVD. EXTREMITIES: He has good range of motion in his shoulders, but he does complain of some tenderness in his trapezoid muscles. He said that has slightly improved since last visit. MUSCULOSKELETAL: Tenderness across his lumbar spine and complains of right hip and thigh pain today. He does walk with a slightly antalgic gait. His lower extremity strength is judged to be 5/5 in all major muscle groups. IMPRESSION: 1. Right hip pain, status post replacement due to avascular necrosis. 2. Chronic low back pain. 3. Sleep apnea. 4. Asthma. 5. Osteoarthritis, joint disease. 6. Tobacco habituation. We reviewed the fact that opiate medications are being used to provide analgesia adequate to support activities of daily living, not attempting to achieve a specific pain score on the 0-10 Visual Analog Scale. The current opiate medications are providing sufficient analgesia to allow the patient to participate in activities of daily living. The patient is not exhibiting any aberrant behavior suggestive of drug diversion. The patient is not having any adverse reactions to medications. The patient is not suffering from daytime somnolence or mental acuity changes. The patient is managing opiate-induced constipation with appropriate bpna-dbj-[id number] agents and dietary considerations. The patient was counseled on concern for caution with operating a motor vehicle while using opiate medications. A physical exam was performed and the patient's functional status was evaluated. All patients with back pain were advised against the bed rest greater than 4 days and were advised to return to normal activities. Pain score assessment was noted and the treatment plan was reviewed with the patient. All current medications, both prescribed and OTC were reviewed and reconciled on the electronic medical record. Tobacco screening was accomplished and smoking cessation was advised when indicated. BMI was noted and diet/exercise modification was recommended for all patients following outside normal parameters. [address] [place] [address] PAIN MANAGEMENT CONSULTATION Name: KIRSTIN ALVARADO Room #: REG [facility].#: [id number] Admission: 04/15/19 ������������������ Attend Phys: Rosaline RODNEY Warner Discharge: ������������������ Date of : 64 Report #: [id number] I reviewed with the patient today their responsibilities to safeguard prescription medications, reviewed their responsibility to utilize medications only as prescribed by the physician. They are to seek and receive pain medications only from 1 physician group ( [facility]). They are to use 1 pharmacy and keep the clinic informed if they change pharmacies. Their responsibilities include making followup visits in a timely fashion and to avoid abrupt discontinuation of medication usage. Their responsibilities further include bringing their medications (bottles from the pharmacy with residual pills) to the visit for possible confirmation of pill counts and the patient understands it is their responsibility to submit to random drug screens to ensure both that the medications prescribed are present, and that no other controlled substances are present. All prescriptions provided today were generated electronically. PLAN: 1. We discussed treatment options with the patient today. The patient tells me he restarted smoking after 2 years of abstinence of this. He says it is because he has gained weight and he would like to decrease his weight again. We did talk about activity, increasing his exercise. He does use a Bowflex machine. We discussed aquatherapy that puts less pressure on his joints that may be beneficial. We also discussed abdominal workout to help lose some of the girth that he has. The patient will also look at his Bowflex machine exercises for his abdomen. We also gave him back exercises. 2. The patient was wondering about his testosterone level. Dr. Nawaf Hall had checked this years ago. I encouraged him to ask his primary care doctor, Dr. Miguel since that is not a medication that our physicians manage. I encouraged him to have this level checked when he sees a doctor next month and we discussed if it is low, androgen gel or injections. 3. We talked for quite significant time about smoking cessation since he had gone 2 years and the benefits that it has on his body and also helps reduce his pain. He tells me that his pain has increased recently and we talked that it may be that the smoking has increased his pain as it decreases his circulation by constricting vessels. The patient tells me that he will try to decrease his use or keep it only at 1/2 a pack a day. 4. Prescriptions given for MS Contin 15 mg #60 for today, 4-week and 8-week release and hydrocodone 5/325 for today and for an 8-week release. This places the patient at 60 morphine milligram milliequivalent according to the CDC guidelines. 5. The patient is seen in collaboration today with Dr. Ishaan Rao. He did see the patient as well. The patient will return in 3 months. ��������������������������������������������� <ELECTRONICALLY SIGNED> ���������������������������������������� By: Rosaline Warner ��������������������������������������������� 04/16/19 1025 1524 [id number] Rosaline Warner /nt
== END ==
LOC: PAIN 07:06
DX: M19.90 Unspecified osteoarthritis, unspecified site (principal); M54.5 Low back pain; M25.551 Pain in right hip; G89.29 Other chronic pain; G47.30 Sleep apnea, unspecified; J45.909 Unspecified asthma, uncomplicated; F17.210 Nicotine dependence, cigarettes, uncomplicated

== ENCOUNTER → 2019-07-24 | Outpatient (CLI) | payer BC, OTHER ==
[~2019-07-24] VITALS: Ht 182.9 cm; Wt 120.1 kg
[2019-07-24 08:21] VITALS: BP 166/78
--- NOTE | 2019-07-24 08:49 | NUR ---
Pain Clinic Assessment: 1. History of Osteoarthritis: B/L SHOULDERS B/L KNEES History of Rheumatoid Arthritis: Not Applicable 2. Height: 6 ft. 0 in. 182.9 cm. Weight: 264.8 lb. oz. 120.113 kg. Patient's BMI: 35.9 3. Vital Signs: BP: 166/78 Pulse: 71 Resp: 16 Temp: 02 Sat: 100 ECG Mon: 4. Pain Intensity: 7 5. Fall Risk: Dizziness: N Needs help standing or walking: N Fallen in the last 3 months: N Fall risk comments: 6. Patient on Blood Thinner: None 7. History of Hypertension: N 8. Opioid Therapy greater than 6 weeks: Y Opiate Contract Signed: 04/23/16 9. Risk Assessment Tool Provided: 0/LOW 10. Functional Assessment Tool: 11. Recreational Drug Use: Never Drug Type: Tobacco Use: Current Every Day Smoker Tobacco Type: Cigarettes Amount or Packs/day: 1 ppd How Many Years: Alcohol Use: Past use Frequency: Quant:
--- NOTE | 2019-07-27 08:24 | HPC ---
[facility] [place] [address] PAIN MANAGEMENT CONSULTATION Name: KIRSTIN ALVARADO [id number] Admission: 07/24/19 Attend Phys: Rosaline Warner Discharge: Date of : 64 Report #: [id number] THIS REPORT FOR: //name// CC: Rosaline Miguel MD DATE OF SERVICE: 07/24/2019 CHIEF COMPLAINT: Right hip pain and low back pain. HISTORY OF PRESENT ILLNESS: This is a very pleasant 59-year-old gentleman who returns to the pain clinic today for refill of his medications that he uses to help treat his ongoing right hip and low back pain. He reports a pain score of 7/10 today. He tells me that his pain is worse with walking and standing, especially when he works long hours. It is a sharp, intermittent pain. The medications are very beneficial as well as lying down. He denies any problems with constipation from his medications or daytime sleepiness. The patient continues to smoke about a pack a day. He informs me he continues to try and smoke, but it is difficult since his work allows them to smoke throughout the day when they are outside. He tells me he is having occasional difficulty breathing and does take some inhalers. He continues to try and decrease his smoking. He had quit for 2-1/2 years and is frustrated with himself that he had started again. ALLERGIES: NONSTEROIDAL ANTI-INFLAMMATORIES. CURRENT LIST OF MEDICATIONS: Morphine ER b.i.d., hydrocodone 7.5/325 q.i.d. p.r.n., diclofenac gel as needed, alprazolam 0.5 mg p.r.n. and albuterol inhaler. PQRS: 1. He has a history of osteoarthritis in his upper and lower extremities. He has had hip replacement. 2. Denies rheumatoid arthritis. 3. Height is 6 feet, weight is 264, BMI is 35. 4. Vital signs 166/78, pulse is 71, respirations 16, oxygen sat is 100. 5. Pain score is 7/10. 6. Denies dizziness, does not need help walking or standing, has not fallen in the last 3 months. 7. The patient is not on any blood thinners, does not have a history of hypertension. 8. Opioid therapy is greater than 6 weeks; therefore, an opioid signed contract is on the chart. Risk assessment tool is low. Functional assessment is 41/70. [address] [address] PAIN MANAGEMENT CONSULTATION Name: KIRSTIN ALVARADO Room #: REG [facility].#: [id number] Admission: 07/24/19 Attend Phys: Rosaline Warner Discharge: Date of : 64 Report #: [id number] 9. Recreational drug use, he denies. Currently smokes about a pack of cigarettes a day and does not drink alcohol. According to the prescription monitoring system, the patient is filling appropriately for his medications in a timely fashion and is due for those today. We will check a random drug screen on this patient today since it has been greater than one year. He does tell me he safeguards his medications at all times. PHYSICAL EXAMINATION: GENERAL: This is a well-developed, well-nourished, well-hydrated 59-year-old gentleman who appears his stated age, placing his current pain score at 7/10. His affect is flat. HEENT: Normocephalic, atraumatic. Extraocular eye muscles are intact. Mucous membranes are moist. NECK: Without adenopathy or JVD. MUSCULOSKELETAL: Complains of tenderness in his left shoulder, but able to perform range of motion in all planes with slight tenderness. He has tenderness across his lumbosacral region and radiates into his right hip and right thigh. He does walk with a slightly antalgic gait. His lower extremity strength judged to be 5/5 in all major muscle groups. IMPRESSION: 1. Right hip pain, status post replacement due to avascular necrosis. 2. Chronic low back pain. 3. Sleep apnea. 4. Asthma. 5. Osteoarthritis with joint disease. 6. Tobacco habituation. 7. Complex medical management under terms of written opioid agreement. We reviewed the fact that opiate medications are being used to provide analgesia adequate to support activities of daily living, not attempting to achieve a specific pain score on the 0-10 Visual Analog Scale. The current opiate medications are providing sufficient analgesia to allow the patient to participate in activities of daily living. The patient is not exhibiting any aberrant behavior suggestive of drug diversion. The patient is not having any adverse reactions to medications. The patient is not suffering from daytime somnolence or mental acuity changes. The patient is managing opiate-induced constipation with appropriate ruld-pue-rojuhuf agents and dietary considerations. The patient was counseled on concern for caution with operating a motor vehicle while using opiate medications. A physical exam was performed and the patient's functional status was evaluated. All patients with back pain were advised against the bed rest greater than 4 days and were advised to return to normal activities. Pain score assessment was [address] [address] PAIN MANAGEMENT CONSULTATION Name: KIRSTIN ALVARADO Room #: REG [facility] Acuña#: [id number] Admission: 07/24/19 Attend Phys: Rosaline Warner Discharge: Date of : 64 Report #: [id number] noted and the treatment plan was reviewed with the patient. All current medications, both prescribed and OTC were reviewed and reconciled on the electronic medical record. Tobacco screening was accomplished and smoking cessation was advised when indicated. BMI was noted and diet/exercise modification was recommended for all patients following outside normal parameters. I reviewed with the patient today their responsibilities to safeguard prescription medications, reviewed their responsibility to utilize medications only as prescribed by the physician. They are to seek and receive pain medications only from 1 physician group ( [facility]). They are to use 1 pharmacy and keep the clinic informed if they change pharmacies. Their responsibilities include making followup visits in a timely fashion and to avoid abrupt discontinuation of medication usage. Their responsibilities further include bringing their medications (bottles from the pharmacy with residual pills) to the visit for possible confirmation of pill counts and the patient understands it is their responsibility to submit to random drug screens to ensure both that the medications prescribed are present, and that no other controlled substances are present. All prescriptions provided today were generated electronically. PLAN: 1. We discussed treatment options with the patient today. The patient feels that his current pain regimen is beneficial. We will continue his MS Contin 15 mg, #60, release seen on today, 4-week and 8-week as well as his hydrocodone 7.5/325, #120 for today 4-week and 8-week. According to the CDC guidelines, this places him at 60 morphine mEq. 2. We did discuss smoking cessation. Again today, the patient will continue to try and decrease his smoking before the next visit. 3. We did talk about exercise since the patient had gained some weight, the patient is trying to be more active. His weight has been stable in the past 3 months. 4. The patient is seen in collaboration with Dr. Ishaan Rao who did see the patient today. We will collect a random drug screen on this patient today as well. He will return in 3 months. <ELECTRONICALLY SIGNED> By: Rosaline Warner 07/27/19 0824 [id number] Rosaline Warner /nt
== END ==
LOC: PAIN 06:53
DX: M54.5 Low back pain (principal); J45.909 Unspecified asthma, uncomplicated; G47.30 Sleep apnea, unspecified; M19.90 Unspecified osteoarthritis, unspecified site; F17.200 Nicotine dependence, unspecified, uncomplicated; Z88.8 Allergy status to other drugs, medicaments and biological substances; Z79.899 Other long term (current) drug therapy; Z79.891 Long term (current) use of opiate analgesic

== ENCOUNTER → 2019-10-28 | Outpatient (CLI) | payer BC, OTHER ==
[~2019-10-28] VITALS: Ht 182.9 cm; Wt 124.6 kg
[2019-10-28 12:55] VITALS: BP 146/71
--- NOTE | 2019-10-28 13:19 | NUR ---
Pain Clinic Assessment: 1. History of Osteoarthritis: B/L SHOULDERS B/L KNEES History of Rheumatoid Arthritis: Not Applicable 2. Height: 6 ft. 0 in. 182.9 cm. Weight: 274.8 lb. oz. 124.649 kg. Patient's BMI: 37.3 3. Vital Signs: BP: 146/71 Pulse: 67 Resp: 16 Temp: 02 Sat: 97 ECG Mon: 4. Pain Intensity: 7 5. Fall Risk: Dizziness: N Needs help standing or walking: N Fallen in the last 3 months: N Fall risk comments: 6. Patient on Blood Thinner: None 7. History of Hypertension: N 8. Opioid Therapy greater than 6 weeks: Y Opiate Contract Signed: 04/23/16 9. Risk Assessment Tool Provided: 0/LOW 10. Functional Assessment Tool: 11. Recreational Drug Use: Never Drug Type: Tobacco Use: Current Every Day Smoker Tobacco Type: Cigarettes Amount or Packs/day: 1/2 How Many Years: Alcohol Use: Past use Frequency: Quant:
--- NOTE | 2019-10-29 08:52 | HPC ---
[facility] [place] [address] PAIN MANAGEMENT CONSULTATION Name: KIRSTIN ALVARADO Room #: REG [facility].#: [id number] Admission: 10/28/19 Attend Phys: Rosaline Warner Discharge: Date of : 64 Report #: [id number] THIS REPORT FOR: //name// CC: Rosaline Miguel MD DATE OF SERVICE: 10/28/2019 CHIEF COMPLAINT: Right hip pain and lower back pain. HISTORY OF PRESENT ILLNESS: This is a very pleasant 59-year-old gentleman who returns to the pain clinic today for medication refill that he takes to help treat his right hip pain as a result of avascular necrosis. He has had this replaced, but has continued to have ongoing hip pain as well as low back pain. He does find his morphine and hydrocodone very beneficial in helping control his pain, rating it though slightly higher today due to weather changes of 04/15. He feels that besides the weather, standing and prolonged walking does increase his pain. 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 He feels that sitting and lying down as well as his medication are very beneficial. He denies any problems with daytime sleepiness or constipation. ALLERGIES: NONSTEROIDAL ANTI-INFLAMMATORIES. CURRENT LIST OF MEDICATIONS: Morphine sulfate 15 mg b.i.d., hydrocodone 7.5/325 t.i.d. p.r.n., diclofenac gel as needed, alprazolam 0.25 mg at bedtime p.r.n. and albuterol inhaler. PQRS: 1. He has a history of osteoarthritis in his upper and lower extremities with hip replacement. Denies any rheumatoid arthritis. 2. Height is 6 feet, weight is 274, BMI is 37. 3. Vital signs 146/71, pulse is 67, respirations 16, oxygen sat is 97. 4. Pain score 7/10. 5. Denies dizziness, does not need help walking or standing, has not fallen in the last 3 months. 6. The patient is not on any blood thinners or hypertension medicines. 7. Opiate therapy is greater than 6 weeks, therefore an opioid signed contract is on the chart. Risk assessment tool is low. Functional assessment is 41/70. 8. Recreational drug use, he denies. He currently smokes up to a pack of cigarettes a day and denies any alcohol use. According to the prescription monitoring system, the patient is filling appropriately for his medications from us. He does take alprazolam at bedtime [address] [address] PAIN MANAGEMENT CONSULTATION Name: KIRSTIN ALVARADO Room #: REG [facility]#: [id number] Admission: 10/28/19 Attend Phys: Rosaline Warner Discharge: Date of : 64 Report #: [id number] and he is cautioned about the interaction on these medications. According to the CDC guidelines, his morphine milliequivalent is 60 per day. There is a recent drug screen on the chart that is appropriate for his medications. PHYSICAL EXAMINATION: GENERAL: This is a well-developed, well-nourished, slightly obese 59-year-old gentleman who appears his stated age, placing his current pain score at 7/10. He does have a flat affect. HEENT: Normocephalic, atraumatic. Extraocular eye muscles are intact. Mucous membranes are moist. MUSCULOSKELETAL: He has tenderness in his lumbosacral region that radiates into his right hip down into his right thigh. He does have a slightly antalgic gait. Lower extremity strength judged to be 5/5 in all major muscle groups. ASSESSMENT: 1. Right hip pain, status post replacement due to avascular necrosis. 2. Chronic low back pain. 3. Sleep apnea. 4. Asthma. 5. Tobacco habituation. 6. Osteoarthritis with joint disease. 7. Complex medical management under terms of written opioid agreement. We reviewed the fact that opiate medications are being used to provide analgesia adequate to support activities of daily living, not attempting to achieve a specific pain score on the 0-10 Visual Analog Scale. The current opiate medications are providing sufficient analgesia to allow the patient to participate in activities of daily living. The patient is not exhibiting any aberrant behavior suggestive of drug diversion. The patient is not having any adverse reactions to medications. The patient is not suffering from daytime somnolence or mental acuity changes. The patient is managing opiate-induced constipation with appropriate iyfo-bhl-uyuhxgc agents and dietary considerations. The patient was counseled on concern for caution with operating a motor vehicle while using opiate medications. A physical exam was performed and the patient's functional status was evaluated. All patients with back pain were advised against the bed rest greater than 4 days and were advised to return to normal activities. Pain score assessment was noted and the treatment plan was reviewed with the patient. All current medications, both prescribed and OTC were reviewed and reconciled on the electronic medical record. Tobacco screening was accomplished and smoking cessation was advised when indicated. BMI was noted and diet/exercise modification was recommended for all patients following outside normal parameters. I reviewed with the patient today [facility] [address] [address] PAIN MANAGEMENT CONSULTATION Name: KIRSTIN ALVARADO Room #: REG CLShana [facility]uña#: [id number] Admission: 10/28/19 Attend Phys: Rosaline Warner Discharge: Date of : 64 Report #: [id number] prescription medications, reviewed their responsibility to utilize medications only as prescribed by the physician. They are to seek and receive pain medications only from 1 physician group ( [facility]). They are to use 1 pharmacy and keep the clinic informed if they change pharmacies. Their responsibilities include making followup visits in a timely fashion and to avoid abrupt discontinuation of medication usage. Their responsibilities further include bringing their medications (bottles from the pharmacy with residual pills) to the visit for possible confirmation of pill counts and the patient understands it is their responsibility to submit to random drug screens to ensure both that the medications prescribed are present, and that no other controlled substances are present. All prescriptions provided today were generated electronically. PLAN: 1. We discussed treatment options with the patient today. We will renew his MS Contin 15 mg #60 to release today, 4-week and 8-week, which he finds very beneficial as well as his hydrocodone 7.5/325, #125 for 3 months. 2. We did discuss smoking cessation, which we have in the past. The patient was able to quit for greater than one year. Recently had restarted smoking. He is now up to almost a pack a day. The patient reports that he had restarted smoking to lose weight, though he continues to gain weight. I pointed out that he is now at 274 compared to 3 months ago he was at 264. I encouraged the patient to pick a date and stop smoking, follow the regime that he had in the past to make this happen. He has stopped smoking several times and felt better with his breathing and his pain was better controlled when he had stopped. 3. We did talk about exercise program and encouraged the patient to be as active as possible to also help him lose weight. The patient verbalizes understanding. 4. The patient is seen today in collaboration with Dr. Ishaan Rao who did see this patient today as well. <ELECTRONICALLY SIGNED> By: Rosaline Warner 10/29/19 [id number] Rosaline Warner /nt
== END ==
LOC: PAIN 06:58
DX: M54.5 Low back pain (principal); M25.551 Pain in right hip; G47.30 Sleep apnea, unspecified; J45.909 Unspecified asthma, uncomplicated; M19.90 Unspecified osteoarthritis, unspecified site; Z79.891 Long term (current) use of opiate analgesic; Z79.899 Other long term (current) drug therapy; Z88.8 Allergy status to other drugs, medicaments and biological substances

== ENCOUNTER → 2020-01-27 | Outpatient (CLI) | payer BC, OTHER ==
[~2020-01-27] VITALS: Ht 182.9 cm; Wt 125.0 kg
[~2020-01-27] MED LIST changes: +NARCAN4 MG NARES
[2020-01-27 13:50] VITALS: BP 162/71
--- NOTE | 2020-01-27 14:05 | NUR ---
Pain Clinic Assessment: 1. History of Osteoarthritis: B/L SHOULDERS B/L KNEES History of Rheumatoid Arthritis: Not Applicable 2. Height: 6 ft. 0 in. 182.9 cm. Weight: 275.6 lb. oz. 125.012 kg. Patient's BMI: 37.4 3. Vital Signs: BP: 162/71 Pulse: 70 Resp: 20 Temp: 02 Sat: 100 ECG Mon: 4. Pain Intensity: 5 5. Fall Risk: Dizziness: N Needs help standing or walking: N Fallen in the last 3 months: N Fall risk comments: 6. Patient on Blood Thinner: None 7. History of Hypertension: N 8. Opioid Therapy greater than 6 weeks: Y Opiate Contract Signed: 04/23/16 9. Risk Assessment Tool Provided: 0/LOW 10. Functional Assessment Tool: 11. Recreational Drug Use: Never Drug Type: Tobacco Use: Current Every Day Smoker Tobacco Type: Cigarettes Amount or Packs/day: 7 PER DAY How Many Years: Alcohol Use: Past use Frequency: Quant:
--- NOTE | 2020-02-03 08:03 | HPC ---
[facility] [place] [address] [place] [address] PAIN MANAGEMENT CONSULTATION Name: KIRSTIN ALVARADO Room #: REG [facility]..#: [id number] Admission: 01/27/20 Attend Phys: Mariola Rao MD Discharge: Date of : 64 Report #: [id number] THIS REPORT FOR: cc: Som Miguel MD,Som Rao,Mariola Belle MD ~ CC: Mariola Miguel DATE OF SERVICE: 01/27/2020 CHIEF COMPLAINT: Right hip pain. HISTORY: The patient is a 59-year-old gentleman who has been having pain and discomfort involving his right hip since hip arthroplasty in 2008. He has found that chronic opioid use has been helpful. He rates his pain as a 5/10. It depends on the level of activity. Climbing stairs and other activities can be quite problematic. He is working at home at this point. He does work for a [employer]. He is able to work at home with his computer. He is staying socially isolated because of the coronavirus. Continues to have pain in the right hip and right knee. He also has pain in his shoulders. He has used bowflex. Denies any new falls. Prolonged standing and weightbearing can be problematic. ALLERGIES: NONSTEROIDAL ANTI-INFLAMMATORY. CURRENT MEDICATIONS: Promethazine 6.25 mg, morphine 15 mg, MS Contin 15 mg b.i.d., Voltaren gel 1% to the ankle 2-3 times daily, alprazolam 0.5 mg p.r.n. anxiety, hydrocodone 5/325, albuterol inhaler 2 puffs p.r.n. PAIN CLINIC ASSESSMENT/PQRS: 1. The patient has a history of osteoarthritis involving his left lower extremity. His left upper extremity, right lower extremity and right upper extremity are all problematic because of osteoarthritic changes. The patient is not being treated for rheumatoid arthritis. 2. Height 6 feet, weight 275 pounds, BMI is 37.4. 3. Vital signs: Blood pressure 162/71, pulse 70, respiratory rate 20, room air saturation 100%. 4. Pain intensity 5/10. 5. Fall history: The patient has not fallen in the last 3 months. 6. Blood thinner. The patient is not on a blood thinning medication. 7. Hypertension. The patient is not being treated for hypertension. 8. Opioids greater than 6 weeks. The patient receives medication from the pain clinic. 9. Risk assessment tool, low for opioid use. 10. Functional assessment tool 41/70. [address] [address] PAIN MANAGEMENT CONSULTATION Name: KIRSTIN ALVARADO Room #: REG [facility]#: [id number] Admission: 01/27/20 Attend Phys: Mariola Rao MD Discharge: Date of : 64 Report #: [id number] 11. Recreational drug use. The patient denies. 12. Tobacco: 7 cigarettes per day. 13. Alcohol: The patient denies frequent use of alcoholic beverages. PHYSICAL EXAMINATION: GENERAL: The patient is a well-developed, well-nourished white male. Appears his stated age. He is alert and oriented x 3. His affect is appropriate. Speech is fluent. HEENT: Normocephalic, atraumatic. Extraocular eye muscles intact. Sclerae nonicteric. Mucous membranes are moist. NECK: Without adenopathy. LUNGS: Generally clear. ABDOMEN: Nontender. Bowel sounds present. MUSCULOSKELETAL: The patient has some discomfort in the left and the right hip. He has had a hip replacement. IMPRESSION: 1. Right hip pain, which is problematic since 2008. 2. Sleep apnea. 3. Asthma. 4. Stomach problems. 5. Gastroesophageal reflux. 6. Joint disease/arthritis. RECOMMENDATIONS: We discussed treatment options with the patient. He is able to stay at home because of the COVID-19. He uses his computer from home. 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 He is able to continue with his job from home. A script for his medications have been written. We will continue with morphine 15 mg 1 p.o. b.i.d. He will also continue with hydrocodone 7.5 mg q.i.d. A script for Narcan has been provided. We also discussed the reason for using this medication. He will continue with the Voltaren gel to the affected area 4 times daily. We would like to thank you for letting us participate in his care. We hope he continues to improve. Hopefully, he stays safe from the COVID-19 pandemic. <ELECTRONICALLY SIGNED> By: Mariola Rao MD 02/03/20 [id number] [id number] Mariola Rao MD /nt
== END ==
LOC: PAIN 13:33
DX: M25.551 Pain in right hip (principal); G47.30 Sleep apnea, unspecified; J45.909 Unspecified asthma, uncomplicated; K21.9 Gastro-esophageal reflux disease without esophagitis; M19.90 Unspecified osteoarthritis, unspecified site; K31.89 Other diseases of stomach and duodenum; F17.210 Nicotine dependence, cigarettes, uncomplicated

== ENCOUNTER → 2020-05-18 | Outpatient (CLI) | payer BC, OTHER ==
[~2020-05-18] VITALS: Ht 182.9 cm; Wt 122.9 kg
[2020-05-18 12:51] VITALS: BP 142/76
--- NOTE | 2020-05-18 12:54 | NUR ---
Pain Clinic Assessment: 1. History of Osteoarthritis: B/L SHOULDERS B/L KNEES History of Rheumatoid Arthritis: Not Applicable 2. Height: 6 ft. 0 in. 182.9 cm. Weight: 271.0 lb. oz. 122.925 kg. Patient's BMI: 36.7 3. Vital Signs: BP: 142/76 Pulse: 62 Resp: 16 Temp: 02 Sat: 96 ECG Mon: 4. Pain Intensity: 5-6 5. Fall Risk: Dizziness: N Needs help standing or walking: N Fallen in the last 3 months: N Fall risk comments: 6. Patient on Blood Thinner: None 7. History of Hypertension: N 8. Opioid Therapy greater than 6 weeks: Y Opiate Contract Signed: 04/23/16 9. Risk Assessment Tool Provided: LOW-3 10. Functional Assessment Tool: 11. Recreational Drug Use: Never Drug Type: Tobacco Use: Current Every Day Smoker Tobacco Type: Cigarettes Amount or Packs/day: 8-10 CIG/DAY How Many Years: 45 Alcohol Use: Past use Frequency: Quant:
--- NOTE | 2020-05-19 14:44 | HPC ---
[facility] [place] [address] PAIN MANAGEMENT CONSULTATION Name: KIRSTIN ALVARADO Room #: REG [facility]..#: [id number] Admission: 05/18/20 Attend Phys: Rosaline Warner Discharge: Date of : 64 Report #: [id number] THIS REPORT FOR: cc: Som Miguel MD,Som Warner,Rosaline STEVENS ~ DATE OF SERVICE: 05/18/2020 CHIEF COMPLAINT: Right hip and thigh pain. HISTORY OF PRESENT ILLNESS: This is a pleasant 59-year-old gentleman who returns to the pain clinic for a refill of his medications that he uses to help treat his ongoing right hip pain from a hip arthroplasty that he has had several years ago. He finds that these medications are very beneficial allowing him to work and be as active as he would like, rating his pain score today as 5/6. He does state that his pain is worse with standing, walking, and twisting, the medications as well as lying down or sitting have been beneficial. 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 He denies problems with constipation or daytime somnolence as a result of his medications. ALLERGIES: NONSTEROIDAL ANTI-INFLAMMATORIES. CURRENT LIST OF MEDICATIONS: Morphine sulfate 15 mg b.i.d., hydrocodone 7.5/325 p.r.n., diclofenac gel p.r.n., alprazolam 0.25 mg p.r.n. and albuterol inhaler. PQRS: 1. He has osteoarthritis in his shoulders, knees and hips. Denies rheumatoid arthritis. 2. Height is 6 feet, weight is 271, BMI is 36. 3. Vital signs 142/76, pulse is 62, respirations 16, oxygen sat is 96%. Pain score is 5-6. 4. Fall risk. Denies dizziness, does not need help walking or standing, has not fallen in the last 3 months. The patient is not on any blood thinners or medicine for hypertension. 5. Opioid therapy is greater than 6 weeks; therefore, an opioid signed contract is on the chart. Risk assessment tool is low. Functional assessment is 9. 6. Recreational drug use, he denies. He does smoke about 8-10 cigarettes a day and denies alcohol use. According to the prescription monitoring system, the patient is filling appropriately. His morphine milliequivalent is 60 MME per day. He does take a benzodiazepine as well and we will monitor these closely. We did have a recent drug screen that is appropriate on his chart. [address] [address] PAIN MANAGEMENT CONSULTATION Name: CHRISTIANOKIRSTIN LEE Room #: REG [facility] Arianne#: [id number] Admission: 05/18/20 Attend Phys: Rosaline Warner Discharge: Date of : 64 Report #: [id number] PHYSICAL EXAMINATION: GENERAL: This is a well-developed, well-nourished, well-hydrated 59-year-old gentleman who appears his stated age, placing his current pain score at 5-6. His affect is appropriate and fluent. HEENT: Normocephalic, atraumatic. Extraocular eye muscles are intact. Sclerae are nonintrinsic. Mucous membranes are moist and he is wearing a mask. NECK: Without adenopathy. MUSCULOSKELETAL: He is without significant scoliosis, kyphosis or lordosis. He does have discomfort in his right hip and thigh. Lower extremity strength judged to be 5/5 in all major muscle groups. IMPRESSION: 1. Right hip pain, status post surgery. 2. Sleep apnea. 3. Osteoarthritis affecting multiple joints. We reviewed the fact that opiate medications are being used to provide analgesia adequate to support activities of daily living, not attempting to achieve a specific pain score on the 0-10 Visual Analog Scale. The current opiate medications are providing sufficient analgesia to allow the patient to participate in activities of daily living. The patient is not exhibiting any aberrant behavior suggestive of drug diversion. The patient is not having any adverse reactions to medications. The patient is not suffering from daytime somnolence or mental acuity changes. The patient is managing opiate-induced constipation with appropriate vbwh-rhp-jqyswkw agents and dietary considerations. The patient was counseled on concern for caution with operating a motor vehicle while using opiate medications. A physical exam was performed and the patient's functional status was evaluated. All patients with back pain were advised against the bed rest greater than 4 days and were advised to return to normal activities. Pain score assessment was noted and the treatment plan was reviewed with the patient. All current medications, both prescribed and OTC were reviewed and reconciled on the electronic medical record. Tobacco screening was accomplished and smoking cessation was advised when indicated. BMI was noted and diet/exercise modification was recommended for all patients following outside normal parameters. I reviewed with the patient today their responsibilities to safeguard prescription medications, reviewed their responsibility to utilize medications only as prescribed by the physician. They are to seek and receive pain medications only from 1 physician group ( [facility]). They are to use 1 pharmacy and keep the clinic informed if they change pharmacies. Their responsibilities include making followup visits in a timely fashion and to avoid abrupt discontinuation of medication usage. Their responsibilities further include bringing their medications (bottles from the pharmacy with residual [address] [address] PAIN MANAGEMENT CONSULTATION Name: KIRSTIN ALVARADO Room #: REG [facility]#: [id number] Admission: 05/18/20 Attend Phys: Rosaline Warner Discharge: Date of : 64 Report #: [id number] pills) to the visit for possible confirmation of pill counts and the patient understands it is their responsibility to submit to random drug screens to ensure both that the medications prescribed are present, and that no other controlled substances are present. All prescriptions provided today were generated electronically. PLAN: 1. We discussed treatment options with the patient today. The patient finds his medication very beneficial and would like to continue. We will have Dr. Ishaan Rao send electronically morphine 15 mg 1 tablet b.i.d., #60 as well as his hydrocodone 7.5/325, #120. These will be released for a total of 3 months. 2. The pharmacy would not fill his Narcan prescription that Dr. Ishaan Rao prescribed for him last time, we did call the pharmacy and explained we do not believe this patient is at risk for overdose, but we would like him to have it just in case at his house in case of an emergency, they replied that they would fill this and we let the patient know today. 3. We did talk about safeguarding his meds at all time. He is getting ready to hopefully go on a trip to [facility] after COVID has subsided and we did discuss keeping his medications on his person. 4. The patient is seen in collaboration today with Dr. Ishaan Rao. <ELECTRONICALLY SIGNED> By: Rosaline Warner 05/19/20 [id number] Rosaline Warner /nt
== END ==
LOC: PAIN 06:56
PROVIDERS: ATTEND Clinical Nurse Specialist Adult Health
DX: Z76.0 Encounter for issue of repeat prescription (principal); M25.551 Pain in right hip; G47.30 Sleep apnea, unspecified; M19.90 Unspecified osteoarthritis, unspecified site; Z79.1 Long term (current) use of non-steroidal anti-inflammatories (NSAID)

== ENCOUNTER → 2020-09-16 | Outpatient (CLI) | payer BC, OTHER ==
[~2020-09-16] VITALS: Ht 185.4 cm; Wt 118.6 kg
[2020-09-16 08:56] VITALS: BP 137/70
--- NOTE | 2020-09-19 07:57 | HPC ---
[facility] [place] [address] PAIN MANAGEMENT CONSULTATION Name: KIRSTIN ALVARADO [id number] Admission: 09/16/20 Attend Phys: Rosaline Wanrer Discharge: Date of : 64 Report #: [id number] THIS REPORT FOR: cc: Som Miguel MD,Som Warner,Rosaline STEVENS ~ DATE OF SERVICE: 09/16/2020 CHIEF COMPLAINT: Right hip and thigh pain. HISTORY OF PRESENT ILLNESS: This is a pleasant 60-year-old who is well known to the pain clinic returning today for refill of his opioid medications. The patient reports a pain score of 5/10 today, located in his right anterior thigh. It is a chronic aching, sharp pain that is worse with standing and walking for prolonged periods of time. He believes his medication as well as lying down and sitting have been beneficial. In the past 3 months, he has been trying to taper slightly and has been able to go a week and a half past his due date on his medications. He is unsure if he would like to decrease his hydrocodone amount per month. At this present time, he would like to continue on his current regimen for 3 more months due to the fact that his pain is generally worse in the wintertime. The patient continues to try to decrease his smoking. He is down to 6 cigarettes a day. He reports in the past 3 months, he did quit for about 2 weeks, then restarted again. His goal is to stop by the end of this calendar year. The patient reports he notices a difference in how he feels when he is not smoking. He wheezes less and has less respiratory issues. ALLERGIES: NONSTEROIDAL ANTI-INFLAMMATORIES. CURRENT LIST OF MEDICATIONS: Morphine sulfate 15 mg b.i.d., hydrocodone 7.5/325 p.r.n., diclofenac gel, alprazolam and albuterol inhaler. PQRS: 1. He has a history of osteoarthritis in his shoulders, knees and hips. He denies any rheumatoid arthritis. Height is 6 feet 1 inch, weight is 261, which is down 10 pounds since our last visit. BMI is 34. 2. Vital signs 137/70, pulse is 65, respirations 16, and oxygen sat is 98. 3. Pain score is 5/10. 4. Denies dizziness, does not need help walking or standing, has not fallen in the last 3 months. 5. The patient is not on any blood thinners or hypertension. 6. Opioid therapy is greater than 6 weeks. He does have an opioid signed contract on the chart. Risk assessment is low. Functional assessment is . 7. Recreational drug use, he denies; current smoker of 6 cigarettes a day, which is a significant decrease from his greater than 2 packs a day that he [address] [address] PAIN MANAGEMENT CONSULTATION Name: CHRISTIANOKIRSTIN NIKIA Room #: REG [facility].#: [id number] Admission: 09/16/20 Attend Phys: Rosaline Warner Discharge: Date of : 64 Report #: [id number] previously smoked. He is not on any alcohol. He does not use any alcohol products. According to the prescription monitoring system, the patient is filling appropriately in a timely fashion slightly past his due date by a week to week and a half. His morphine mEq if taking all of his medications is 60 MME. There is a recent drug screen on the chart and we will recheck that next year. PHYSICAL EXAMINATION: GENERAL: This is alert and orientated 60-year-old gentleman who appears his stated age. He is well-nourished, well-hydrated. He is a good historian, placing his current pain score at 5/10. HEENT: Normocephalic, atraumatic. Extraocular eye muscles are intact. Mucous membranes are moist and he is wearing a mask. NECK: Without adenopathy or JVD. MUSCULOSKELETAL: He is without significant scoliosis, kyphosis or lordosis. Discomfort is in the right hip that radiates into the anterior portion of his thigh. His upper and lower extremity strength is symmetrical at 5/5. IMPRESSION: 1. Right hip pain, status post surgery. 2. Sleep apnea. 3. Osteoarthritis affecting multiple joints. 4. Tobacco habituation, discussed cessation of smoking. 5. Opioid medication management following written agreement. We reviewed the fact that opiate medications are being used to provide analgesia adequate to support activities of daily living, not attempting to achieve a specific pain score on the 0-10 Visual Analog Scale. The current opiate medications are providing sufficient analgesia to allow the patient to participate in activities of daily living. The patient is not exhibiting any aberrant behavior suggestive of drug diversion. The patient is not having any adverse reactions to medications. The patient is not suffering from daytime somnolence or mental acuity changes. The patient is managing opiate-induced constipation with appropriate [id number]-[id number] agents and dietary considerations. The patient was counseled on concern for caution with operating a motor vehicle while using opiate medications. PLAN: 1. We discussed treatment options with the patient today. The patient finds his medication beneficial. He is trying to decrease his dose. Hopefully, when we see him in 3 months, we will be able to adjust his hydrocodone amount per month downward. Today, scripts will be sent electronically for hydrocodone 7.5, #120 and morphine sulfate 15 mg, #60 for 3 total months. These will be sent electronically by Dr. Ishaan Rao. 2. A significant amount of time was spent discussing smoking cessation. [facility] [address] [place] [address] PAIN MANAGEMENT CONSULTATION Name: KIRSTIN ALVARADO Room #: [facility] [id number] Admission: 09/16/20 Attend Phys: Rosaline Warner Discharge: Date of : 64 Report #: [id number] patient used to smoke greater than 2 packs a day. He is down to 6 cigarettes a day with a goal of stopping by the end of September. We talked about various ways to alter his routine, and habits to make him more successful in ____ smoking for a significant amount of time, greater than 2 weeks. 3. The patient will return in 3 months. Seen today in collaboration with Dr. Ishaan Rao. <ELECTRONICALLY SIGNED> By: Rosaline Warner 09/19/20 [id number] Rosaline Warner /nt
== END ==
LOC: PAIN 06:46
PROVIDERS: ATTEND Clinical Nurse Specialist Adult Health
DX: M25.551 Pain in right hip (principal); M79.651 Pain in right thigh; G47.30 Sleep apnea, unspecified; M19.90 Unspecified osteoarthritis, unspecified site; F17.200 Nicotine dependence, unspecified, uncomplicated; F11.20 Opioid dependence, uncomplicated

== ENCOUNTER → 2021-07-07 | Outpatient (CLI) | payer BC, OTHER ==
[~2021-07-07] VITALS: Ht 182.9 cm; Wt 110.8 kg
[~2021-07-07] MED LIST changes: +ARTHRITIS PAIN100 GM TOP
[2021-07-07 10:50] VITALS: BP 134/64
--- NOTE | 2021-07-07 11:08 | NUR ---
Pain Clinic Assessment: 1. History of Osteoarthritis: B/L SHOULDERS B/L KNEES History of Rheumatoid Arthritis: Not Applicable 2. Height: 6 ft. 0 in. 182.9 cm. Weight: 244.2 lb. oz. 110.769 kg. Patient's BMI: 33.1 3. Vital Signs: BP: 134/64 Pulse: 62 Resp: 20 Temp: 02 Sat: 100 ECG Mon: 4. Pain Intensity: 5 5. Fall Risk: Dizziness: N Needs help standing or walking: N Fallen in the last 3 months: N Fall risk comments: 6. Patient on Blood Thinner: None 7. History of Hypertension: N 8. Opioid Therapy greater than 6 weeks: Y Opiate Contract Signed: 04/23/16 9. Risk Assessment Tool Provided: LOW-3 10. Functional Assessment Tool: 11. Recreational Drug Use: Never Drug Type: Tobacco Use: Current Every Day Smoker Tobacco Type: Cigarettes Amount or Packs/day: How Many Years: Alcohol Use: Past use Frequency: Special Occasions Quant:
== END ==
LOC: PAIN 06:59
PROVIDERS: ATTEND Clinical Nurse Specialist Adult Health
DX: M25.551 Pain in right hip (principal); G47.30 Sleep apnea, unspecified; M19.90 Unspecified osteoarthritis, unspecified site; F41.9 Anxiety disorder, unspecified; F17.200 Nicotine dependence, unspecified, uncomplicated; Z79.891 Long term (current) use of opiate analgesic; Z79.899 Other long term (current) drug therapy

== ENCOUNTER → 2021-12-01 | Outpatient (CLI) | payer BC, OTHER ==
[~2021-12-01] VITALS: Ht 182.9 cm; Wt 112.9 kg
[~2021-12-01] MED LIST changes: +MEDROLDOSEPACK PO
[2021-12-01 12:36] VITALS: BP 135/63
--- NOTE | 2021-12-01 12:39 | NUR ---
Pain Clinic Assessment: 1. History of Osteoarthritis: B/L SHOULDERS B/L KNEES History of Rheumatoid Arthritis: Not Applicable 2. Height: 6 ft. 0 in. 182.9 cm. Weight: 249.0 lb. oz. 112.946 kg. Patient's BMI: 33.8 3. Vital Signs: BP: 135/63 Pulse: 60 Resp: 16 Temp: 02 Sat: 96 ECG Mon: 4. Pain Intensity: 6 5. Fall Risk: Dizziness: N Needs help standing or walking: N Fallen in the last 3 months: N Fall risk comments: 6. Patient on Blood Thinner: None 7. History of Hypertension: N 8. Opioid Therapy greater than 6 weeks: Y Opiate Contract Signed: 04/23/16 9. Risk Assessment Tool Provided: LOW-3 10. Functional Assessment Tool: 11. Recreational Drug Use: Never Drug Type: Tobacco Use: Current Every Day Smoker Tobacco Type: Cigarettes Amount or Packs/day: 6-7 PER DAY How Many Years: Alcohol Use: Past use Frequency: Quant:
== END ==
LOC: PAIN 07:06
PROVIDERS: ATTEND Anesthesiology Pain Medicine
DX: M79.651 Pain in right thigh (principal); M25.519 Pain in unspecified shoulder; G47.30 Sleep apnea, unspecified; M19.90 Unspecified osteoarthritis, unspecified site; F17.200 Nicotine dependence, unspecified, uncomplicated; Z88.8 Allergy status to other drugs, medicaments and biological substances; Z79.899 Other long term (current) drug therapy